=== PATIENT | male | born 1940 | race Hispanic/Latino ===

== ENCOUNTER → 2018-09-05 | Outpatient (CLI) | payer MEDICARE ==
[~2018-09-05] MED LIST: REGADENOSON 0.4 MG/5 ML SYR IV ONE
--- NOTE | 2018-09-14 13:38 | Myoview Stress Test ---
DATE OF STUDY: 09/05/2018 09:42:00 Stress Test - Treadmill ONLY PROCEDURE TITLE: Rest/stress single isotope SPECT imaging with pharmacologic stress and gated SPECT imaging. INDICATION: Chest pain. PROCEDURE IN DETAIL: Pharmacologic stress testing was performed with regadenoson per protocol. The heart rate was 62 beats per minute at rest and increased to 97 beats per minute during the regadenoson infusion. The rest blood pressure was 99/60 mmHg and increased to 114/61 mmHg, which is a normal response. The resting electrocardiogram demonstrated atrial fibrillation. There were no ST-segment changes suggestive of myocardial ischemia. Myocardial perfusion imaging was performed at rest following injection of 10.7 mCi of tetrofosmin. At peak pharmacologic effect, the patient was injected with 32 mCi of tetrofosmin. Gated post-stress tomographic imaging was performed. FINDINGS: The overall quality of study is fair. Left ventricular cavity is noted to be normal size on the rest and stress studies. SPECT images demonstrate homogeneous tracer distribution throughout the myocardium. Gated SPECT imaging reveals normal myocardial thickening and wall motion. Left ventricular ejection fraction was calculated to be greater than 70%. IMPRESSION: Myocardial perfusion imaging is normal. Overall, left ventricular systolic function was normal without regional wall motion abnormalities. Princess Weinberg MD ABS/MODL /[id number]
== END ==
LOC: NM 09:26
PROVIDERS: ATTEND Internal Medicine Cardiovascular Disease
DX: R07.9 Chest pain, unspecified (principal)
CPT/HCPCS: 78452; 93017; A9502; J2785

== ENCOUNTER 2018-12-29 13:09 | Emergency (ER) | payer MEDICARE, OTHER ==
[~2018-12-29] VITALS: Ht 180.3 cm; Wt 86.2 kg
--- OUTSIDE RECORDS SUMMARY | 2018-12-29 13:13 | XMS REPORT ---
Author Author [facility] Address Unknown Phone Unavailable Care Team Providers Care [facility] Department Chair Name Role Phone Petr MCDONALD Unavailable Unavailable Quinn LOVELL Unavailable Unavailable Problems This patient has no known problems. Allergies, Adverse Reactions, Alerts This patient has no known allergies or adverse reactions. Medications This patient has no known medications. Results Test Description Test Time Test Comments Text Results Atomic Results Result Comments Stress Test - Treadmill ONLY 2018-09-14 12:03:00 [facility] [address] [place] [id number] Patient Name : KENDRA BROWN MR #: [id number] : 1940 Age/Sex: 78/M Adm Physician : JADE MCDONALD DO Admit Date : 09/05/18 [facility] : [facility] Room[facility]Bed : REPORT: Myoview Stress Test DATE OF STUDY: 09/05/2018 09:42:00 Stress Test - Treadmill ONLY PROCEDURE TITLE: Rest/stress single isotope SPECT imaging with pharmacologic stress and gated SPECT imaging. INDICATION: Chest pain. PROCEDURE IN DETAIL: Pharmacologic stress testing was performed with regadenoson per protocol. The heart rate was 62 beats per minute at rest and increased to 97 beats per minute during the regadenoson infusion. The rest blood pressure was 99/60 mmHg and increased to 114/61 mmHg, which is a normal response. The resting electrocardiogram demonstrated atrial fibrillation. There were no ST-segment changes suggestive of myocardial ischemia. Myocardial perfusion imaging was performed at rest following injection of 10.7 mCi of tetrofosmin. At peak pharmacologic effect, the patient was injected with 32 mCi of tetrofosmin. Gated post-stress tomographic imaging was performed. FINDINGS: The overall quality of study is fair. Left ventricular cavity is noted to be normal size on the rest and stress studies. SPECT images demonstrate homogeneous tracer distribution throughout the myocardium. Gated SPECT imaging reveals normal myocardial thickening and wall motion. Left ventricul ar ejection fraction was calculated to be greater than 70%. IMPRESSION: Myocardial perfusion imaging is normal. Overall, left ventricular systolic function was normal without regional wall motion abnormalities. Princess Weinberg MD ABS/CARLITO /[id number] Signature Date Dictated By: PRINCESS WEINBERG MD Transcribed By: CARLITO on 09/14/18 <Electronically signed by PRINCESS WEINBERG MD><<Signature on File>>10/24/18 1259 COPY TO: CHEST SINGLE (PORTABLE) [place] [address] Patient Name: KENDRA BROWN MR #: [id number] : 1940 Age/Sex: 76/M Req #: [id number] Adm Physician: Ordered by: DARLIN LOVELL MD Report #: [id number] Location: ER Room/Bed: Procedure: [id number] DX/CHEST SINGLE (PORTABLE) Exam Date: 01/07/17 Exam Time: 1340 REPORT STATUS: Signed PROCEDURE: A single AP view of the chest. COMPARISON: None. INDICATIONS: CHEST PAIN WHEN COUGHIN FINDINGS: Lines/tubes: None. Lungs: Lungs are inflated, with increased lucency in the upper lobes, suggesting COPD. Linear and patchy opacities in the right upper lung. Thickened bronchial dick/tram tracking noted in the right lower lung. No consolidation or pulmonary edema. Pleura: There is no pleural effusion or pneumothorax. Heart and mediastinum: Cardiac silhouette is unremarkable. Pulmonary vasculature is normal. Bones: No acute bony abnormality. Midline sternotomy wires. IMPRESSION: 1. findings suggesting COPD. Linear and patchy opacities in the right upper lung may represent scarring from prior infection, including TB, however, acute superimposed pneumonia is a consideration in the appropriate clinical setting. No prior films are available for comparison. 2. Tram tracking in the right lower lung suggesting sequela of chronic bronchitis. Adrien Harrison M.D. Dictated by: Adrien Harrison M.D. on 01/07/2017 at 14:30 Electronically approved by: Adrien Harrison M.D. on 01/07/2017 at 14:30 Dictated By: ADRIEN HARRISON MD 1430 Transcribed By: AYSHA on 01/07/17 1430 COPY TO: DARLIN LOVELL MD
[2018-12-29] MEDS ORDERED: SODIUM CHLORIDE 0.9% 1000ML 1,000 ML IV STA (13:25)
[2018-12-29 13:37] LABS: BASOPHILS % 0.4 % (0.0-1.0); EOSINOPHILS # (AUTO) 0.1 (0.0-0.4); EOSINOPHILS % 2.6 % (0.0-6.0); HEMATOCRIT 40.2 % (38.2-49.6); LYMPHOCYTES # (AUTO) 1.8 (1.0-3.2); LYMPHOCYTES % 34.8 % (18.0-39.1); MEAN CORPUSCULAR HEMOGLOBIN 27.8 pg (28-32); MEAN CORPUSCULAR HGB CONC 32.3 g/dL (31-35); MEAN CORPUSCULAR VOLUME 86.1 fL (81-99); MONOCYTES # (AUTO) 0.4 (0.2-0.8); MONOCYTES % 7.5 % (4.4-11.3); NEUTROPHILS # (AUTO) 2.8 (2.1-6.9); NEUTROPHILS % 54.3 % (38.7-80.0); PLATELET COUNT 112 x10e3/uL (140-360); RED BLOOD COUNT 4.67 x10e6/uL (4.3-5.7); RED CELL DISTRIBUTION WIDTH 14.5 % (11.7-14.4)
--- NOTE | 2018-12-29 13:44 | NUR ---
rec'd pt in rm 5 from home with c/o low bp. placed on the monitor. bed low/locked and call valente in hand. family in room
[2018-12-29 13:52] LABS: INR 1.88; PROTHROMBIN TIME 22.3 seconds (11.9-14.5)
[2018-12-29 13:53] LABS: ALANINE AMINOTRANSFERASE 26 IU/L (0-55); ALBUMIN 3.6 g/dL (3.5-5.0); ALBUMIN/GLOBULIN RATIO 0.9 (0.8-2.0); ALKALINE PHOSPHATASE 67 IU/L (40-150); ANION GAP 11.1 mmol/L (8-16); BLOOD UREA NITROGEN 25 mg/dL (7-26); BUN/CREATININE RATIO 20 (6-25); CALCIUM 8.8 mg/dL (8.4-10.2); CARBON DIOXIDE 29 mmol/L (22-29); CHLORIDE 102 mmol/L (98-107); CREATINE KINASE 80 IU/L (30-200); CREATININE, SERUM 1.26 mg/dL (0.72-1.25); EST GLOMERULAR FILTRATION RATE 55 ML/MIN (60-); GLUCOSE 91 mg/dL (74-118); PARTIAL THROMBOPLASTIN TIME 38.1 seconds (23.8-35.5); POTASSIUM 4.1 mmol/L (3.5-5.1); SODIUM 138 mmol/L (136-145)
[2018-12-29 14:00] LABS: LARGE PLATELETS FEW; PLATELET ESTIMATE SLIGHTLY DECREASED
[2018-12-29] MEDS ORDERED: MECLIZINE HCL 12.5 MG TAB PO ONE (14:00)
--- NOTE | 2018-12-29 14:22 | Diagnostic Imaging Report ---
Examination: CT head without contrast Clinical Indication: Dizziness.. Technique: Transaxial noncontrast images from the skull base through the vertex were obtained. Sagittal and coronal reformatted images were done. Dose modulation, iterative reconstruction, and/or weight based adjustment of the mA/kV was utilized to reduce the radiation dose to as low as reasonably achievable. Comparison: None. Findings: Scalp: No abnormalities. Bones: Intact. No fractures. No blastic or lytic lesions. Brain sulci: Mild volume loss for patient's age. Ventricles: No hydrocephalus. Extra-axial space: No abnormalities. Parenchyma: There are patchy areas of low-attenuation within subcortical and periventricular white matter, nonspecific, but could represent microvascular ischemic disease. Chronic lacunar infarcts are identified in the right centrum semiovale and right paramedian chet. No masses, hemorrhage, or acute or chronic cortical based vascular insults. Suprasellar region: No abnormalities. Craniocervical junction: The foramen magnum is patent. No Chiari one malformation. Incidental findings: Atherosclerotic calcification of the cavernous and supraclinoid internal carotid and V4 segments of the bilateral vertebral arteries. Impression: 1. No acute intracranial finding. 2. Mild chronic microvascular ischemic change and volume loss. 3. Chronic lacunar infarcts in the right centrum semiovale and paramedian chet. Signed by: Dr. Charlotte Campoverde M.D. on 12/29/2018 2:19 PM
[2018-12-29] MEDS ORDERED: WARFARIN SODIUM6 MG (14:28)
[2018-12-29] MEDS ORDERED: DIGOXIN125 MCG (14:28)
[2018-12-29] MEDS ORDERED: LOSARTAN-HCTZ1 EAC2 (14:28)
[2018-12-29] MEDS ORDERED: METOPROLOL TART50 MG (14:28)
[2018-12-29] MEDS ORDERED: ATORVASTATIN CA20 MG (14:28)
[2018-12-29] MEDS ORDERED: FLOMAX0.4 MG (14:28)
--- NOTE | 2018-12-29 14:28 | NUR ---
HOME MEDS ENTERED INTO THE COMPUTER
--- NOTE | 2018-12-29 14:36 | NUR ---
PT COMPLAINING OF LEFT LEG PAIN AT THIS TIME.
--- NOTE | 2018-12-29 14:40 | NUR ---
JACKI TRACEY N.P. IN ROOM AT THIS TIME WITH PATIENT.
--- NOTE | 2018-12-29 14:55 | NUR ---
meds given per dr's orders and pt has tolerated well.
[2018-12-29] MEDS ORDERED: TRAMADOL HCL 50 MG TAB PO ONE (15:00)
--- NOTE | 2018-12-29 16:02 | Diagnostic Imaging Report ---
EXAMINATION: HIP LEFT 2-3 VW (+/- PELVIS) INDICATION: Hip pain COMPARISON: None FINDINGS: AP view of the pelvis and AP and frog-leg views of the left hip were obtained. No acute fracture or dislocation. Alignment is anatomic. Mild degenerative changes of the partially visualized spine and both hip joints. Atherosclerotic arterial calcifications. A 12 mm calcific density inferior to the right hip joint may represent a intra-articular loose body. IMPRESSION: No acute osseous injury. Mild degenerative changes of both hip joints. Signed by: Velvet Mc MD on 12/29/2018 3:59 PM
[2018-12-29 17:10] VITALS: BP 102/51
== END 2018-12-29 17:20 | disposition home or self-care (01) ==
LOC: ER 13:09
DX: R42 Dizziness and giddiness (principal); R11.0 Nausea; I10 Essential (primary) hypertension; E78.5 Hyperlipidemia, unspecified; I48.91 Unspecified atrial fibrillation; I25.2 Old myocardial infarction; Z86.73 Personal history of transient ischemic attack (TIA), and cerebral infarction without residual deficits; Z95.1 Presence of aortocoronary bypass graft
CPT/HCPCS: 36415; 70450; 73502; 80053; 80162; 82550; 82553; 84484; 85025; 85610; 85730; 93005; 99284; J7030; J8597